=== PATIENT | female | born 1995 ===

== ENCOUNTER 2017-02-02 18:58 | Emergency (ER) | payer MEDICAID, OTHER ==
[2014-06-05 03:39] VITALS: BMI 30.8
--- NOTE | 2017-02-02 19:38 | OBHP ---
Datetime: 02/02/2017 19:13 IP Adm Impression: Term, intrauterine Admit Comment, IP Provider: 21 y/o @ 40.1 wks RAMÓN 02/01/17 c/o lower back pain and cramping since 2:30pm, constant, 07/23, dneies lof, vb, ctx, +FM Ante: Clinic reports uncomplicated OB: P1 2014 femalse no complcatins 7lbs 4 ounces term [employer]: denies hx of abnormal pap , ovaira cyst, fibroid, siti, LMP 04/27/16 PMH: dneis PSH: denies NKDA MEDS: PNV, Iron< Calcium SXH: Negative etoh/tobacc/drugs EFM: Cat I TOCO: irritalibty BPP: Cephalic, 8/8 MVP 4cm, anterior placenta A/P @ 40.1 wks GA not in active labor with maternal and reassuring and well being dc home f/u clinic 02/03/17 labor precations return to willi FHR - Baseline A Provider: 125 Membranes, Provider: Intact Comments, ACOG Physical Exam: no ab dominal tendnere, negativ rebound tendernes,s no rigidity VE: 2/50/-3 vtx intact Gestation - Est Wks by US: 40.1 EGA AdmitDate IP: 40.1 Vital Signs Provider: Reviewed IP Chief Complaint: Uterine contractions NICHD Variability Prov Fetus A: Moderate 6-25bpm Dilatation, Provider: 2 Effacement, Provider: 50 Station, Provider: -3
[2017-02-03 00:14] VITALS: BP 129/65; PULSE 79; TEMP 97.7
== END 2017-02-02 20:00 | disposition home or self-care (01) ==
LOC: C.EROB 18:58
DX: O26.893 Other specified pregnancy related conditions, third trimester (principal); Z3A.40 40 weeks gestation of pregnancy; M54.5 Low back pain

== ENCOUNTER 2017-02-04 15:50 | Inpatient (IN) | payer OTHER ==
[2014-06-05 03:39] VITALS: BMI 30.8
[2017-02-04 17:13] LABS: BASO % 0.1 % (0.0-2.0); EOS # 0.1 K/uL (0.0-0.7); EOS % 0.7 % (0.0-4.0); HEMATOCRIT 33.3 % (34.0-47.0); LYMPH # 1.9 K/uL (1.0-4.3); LYMPH % 18.7 % (20.0-40.0); MEAN CELL VOLUME 74.5 fL (81.0-99.0); MEAN CORPUSCULAR HEMOGLOBIN 25.1 pg (27.0-31.0); MEAN CORPUSCULAR HGB CONC 33.7 g/dL (33.0-37.0); MEAN PLATELET VOLUME 7.8 fL (7.2-11.7); MONO # 0.9 K/uL (0.0-0.8); RED CELL DISTRIBUTION WIDTH 16.9 % (11.5-14.5); WHITE BLOOD COUNT 10.4 K/uL (4.8-10.8)
[2017-02-04 17:25] LABS: ALKALINE PHOSPHATASE 92 U/L (38-126); ALT/SGPT 18 U/L (9-52); AST/SGOT 20 U/L (14-36); BILIRUBIN,TOTAL 0.4 mg/dL (0.2-1.3); BLOOD UREA NITROGEN 5 mg/dL (7-17); CALCIUM 8.2 mg/dl (8.6-10.4); CARBON DIOXIDE 21 mmol/L (22-30); CHLORIDE 103 mmol/L (98-107); GFR AFRICAN-AMERICAN > 60; GLUCOSE,RANDOM 110 mg/dL (65-105); SODIUM 131 mmol/L (132-148); TOTAL PROTEIN 6.8 g/dL (6.3-8.3)
[2017-02-04 17:32] LABS: RBC URINE 14 /hpf (0-3); URINE BACTERIA RARE (<OCC); URINE BILIRUBIN NEGATIVE (NEGATIVE); URINE BLOOD 2+ (NEGATIVE); URINE COLOR Yellow (YELLOW); URINE GLUCOSE (UA) NORMAL (Normal); URINE KETONE NEGATIVE (NEGATIVE); URINE LEUKOCYTE ESTERASE 1+ Leu/uL (Negative); URINE PROTEIN 1+ mg/dL (NEGATIVE); URINE UROBILINOGEN NORMAL mg/dL (0.2-1.0); WBC URINE 6 /hpf (0-5)
--- NOTE | 2017-02-04 20:09 | OBHP ---
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 , ovaira cyst, fibroid, siti, LMP 04/27/16 PMH: dneis PSH: denies NKDA MEDS: PNV, Iron< Calcium SXH: Negative etoh/tobacc/drugs EFM: Cat I TOCO: irritalibty A/P @ 40.3 wks GA in early labor -pt walking Pt reevlauted c/o ctx pain every 5 min increasing intenti adn frequency, denies vb, +FM admit to L+D npo, ivf dmission labs c0nt toco adn efm Pelvic Type - PN: Adequate Extremities - PN: Normal Abdomen - PN: Normal Back - PN: Normal Breast - PN: Not Done Lungs - PN: Normal Heart - PN: Normal Thyroid - PN: Not Done Neurologic - PN: Normal HEENT - PN: Normal General - PN: Normal Presentation-Admit: Vertex FHR - Baseline A Provider: 150 Membranes, Provider: Intact Gestation - Est Wks by US: 40.3 EGA AdmitDate IP: 40.3 Vital Signs Provider: Reviewed IP Chief Complaint: Uterine contractions NICHD Variability Prov Fetus A: Moderate 6-25bpm FHR Category Provider Fetus A: Category I Dilatation, Provider: 4 Effacement, Provider: 50 Station, Provider: -2 Genitourinary Exam: Normal DTRs - PN: Normal
[2017-02-04] MEDS ORDERED: Lactated Ringer's 1,000 ML IV SCH (20:15)
--- NOTE | 2017-02-04 20:15 | OBADHP ---
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[employer]: denies hx of abnormal pap , ovaira cyst, fibroid, siti, LMP 04/27/16 PMH: dneis PSH: denies NKDA MEDS: PNV, Iron< Calcium SXH: Negative etoh/tobacc/drugs EFM: Cat I TOCO: irritalibty A/P @ 40.3 wks GA in early labor -pt walking Pt reevlauted c/o ctx pain every 5 min increasing intenti adn frequency, denies vb, +FM admit to L+D npo, ivf dmission labs c0nt toco adn efm Pelvic Type - PN: Adequate Extremities - PN: Normal Abdomen - PN: Normal Back - PN: Normal Breast - PN: Not Done Lungs - PN: Normal Heart - PN: Normal Thyroid - PN: Not Done Neurologic - PN: Normal HEENT - PN: Normal General - PN: Normal Presentation-Admit: Vertex FHR - Baseline A Provider: 150 Membranes, Provider: Intact Gestation - Est Wks by US: 40.3 Vital Signs Provider: Reviewed IP Chief Complaint: Uterine contractions NICHD Variability Prov Fetus A: Moderate 6-25bpm FHR Category Provider Fetus A: Category I Dilatation, Provider: 4 Effacement, Provider: 50 Station, Provider: -2 Genitourinary Exam: Normal DTRs - PN: Normal EGA AdmitDate IP: 40.3 IP Adm Impression: Term, intrauterine IP Admit Plan: Admit to unit Datetime: 02/02/2017 19:13 Comments, ACOG Physical Exam: no ab dominal tendnere, negativ rebound tendernes,s no rigidity VE: /- vtx intact
[2017-02-05] MEDS ORDERED: Oxytocin 30 UNIT 30 UNITS/500 ML BAG IV SCH (06:15)
--- NOTE | 2017-02-05 06:28 | OBPN ---
Datetime: 02/05/2017 06:25 IP Progress Impression: Normal progression of labor IP Progress Plan: Continue present management Membranes, Provider: Intact Contraction Comments Provider: 7 min FHR - Baseline A Provider: 145 Gestation - Est Wks by US: 40.4 Presentation-Admit: Vertex IP Progress Note Comment: pt seen and examined c/o pain. pt dneis any vb, +Fm. pt does not desire an y pain meidcaion VS see above VE: 6/80/-2 vtx intact adequate pelviis EFW: 3500 A/P @ 40.4 wks GA augmentatin of labor pitocin per protocol cont currenet managment Vital Signs Provider: Reviewed; Within Normal Limits FHR Category Provider Fetus A: Category I NICHD Variability Prov Fetus A: Moderate 6-25bpm Dilatation, Provider: 6 Effacement, Provider: 80 Station, Provider: -2 NICHD Decel Fetus A IP Provider: None
--- NOTE | 2017-02-05 07:40 | OBPN ---
Datetime: 02/05/2017 07:39 IP Progress Impression: Normal progression of labor IP Procedures: Artificial ROM; Sterile Vag Exam FHR - Baseline A Provider: 130 IP Progress Note Comment: pt was examined at bed side ve 6/100/-1 arom clear anticipate Vital Signs Provider: Reviewed; Within Normal Limits NICHD Accel Fetus A IP Provider: [id number] FHR Category Provider Fetus A: Category I NICHD Variability Prov Fetus A: Moderate 6-25bpm Dilatation, Provider: 6 Effacement, Provider: 100 Station, Provider: -1 Datetime: 02/05/2017 06:25 Weight - Estimated: 3500
[2017-02-05] MEDS ORDERED: Oxycodone/Acetaminophen 5/325 mg Tab PO PRN ×2 (08:16)
[2017-02-05] MEDS ORDERED: Lidocaine 2% Inj (20ml) ONE (08:24)
--- NOTE | 2017-02-05 08:32 | OBDS ---
MATERNAL INFORMATION Provider Comments: baby deliverd in erin end clean no com LABOR SUMMARY EDC: 02/01/2017 00:00 No. Babies in Womb: 1 LABOR INFORMATION Group B Beta Strep: Negative (Annotations: 12/30/2016) MEMBRANES Membranes Rupture Method: Artificial Rupture of Membranes: 02/05/2017 07:27 Length of Rupture (hrs): 0.93 Amniotic Fluid Color: Clear Amniotic Fluid Amount: Scant Amniotic Fluid Odor: Normal STAGES OF LABOR Stage 3 hrs: 0 Stage 3 min: 4 VAGINAL DELIVERY Laceration Extension: N/A Laceration Type: None BABY A INFORMATION Infant Delivery Date/Time: 02/05/2017 08:23 Method of Delivery: Vaginal Born in Route : No : N/A Forceps: N/A Vacuum Extraction: N/A Shoulder Dystocia : No SHOULDER DYSTOCIA BABY A Infant Delivery Date/Time: 02/05/2017 08:23 PRESENTATION/POSITION BABY A Presentation: Cephalic Cephalic Presentation: Vertex Vertex Position: Left Occipital Anterior Breech Presentation: N/A PLACENTA INFORMATION BABY A Placenta Delivery Time : 02/05/2017 08:27 Placenta Method of Delivery: Spontaneous Placenta Status: Delivered SCORES BABY A Heart Rate 1 min: >100 bpm Resp Effort 1 min: Good Cry Reflex Irritability 1 min: Cough or Sneeze or Pulls Away Muscle Tone 1 min: Active Motion Color 1 min: Body [place], Extremities Blue SCORE 1 MIN: 9 Heart Rate 5 min: >100 bpm Resp Effort 5 min: Good Cry Reflex Irritability 5 min: Cough or Sneeze or Pulls Away Muscle Tone 5 min: Active Motion Color 5 min: Body [place], Extremities Blue SCORE 5 MIN: 9 INFANT INFORMATION BABY A Gestational Age at Delivery: 40.4 Gestational Status: Term Infant Outcome : Liveborn Condition : Stable Infant Sex: Female IDENTIFICATION/MEDS BABY A ID Band Number: [id number] WEIGHT/LENGTH BABY A Infant Birthweight (gms): 3470 Infant Weight (lb): 7 Infant Weight (oz): 10 Length Inches: 20.00 Length cms: 50.8 CORD INFORMATION BABY A No. Cord Vessels: 3 Nuchal Cord : N/A Nuchal Cord Other: 0
[2017-02-05] MEDS: Benzocaine/Menthol 20%-0.5% Topical Spray (60 ml) TOP PRN (17:56)
[2017-02-06 06:51] LABS: HEMATOCRIT 32.7 % (34.0-47.0); MEAN CELL VOLUME 74.5 fL (81.0-99.0); MEAN CORPUSCULAR HEMOGLOBIN 24.6 pg (27.0-31.0); MEAN PLATELET VOLUME 7.8 fL (7.2-11.7); RED CELL DISTRIBUTION WIDTH 17.1 % (11.5-14.5); WHITE BLOOD COUNT 15.4 K/uL (4.8-10.8)
--- NOTE | 2017-02-06 08:49 | OBPPN ---
Datetime: 02/06/2017 08:48 PP Pain Prov: Within normal limits PP Nausea Prov: Denies PP Flatus Prov: Yes PP BM Prov: No PP Heart Prov: Normal PP Lungs Prov: Normal PP Abdomen/Uterus Prov: Normal PP Vulva/Perineum Prov: Normal PP CVA Tenderness Prov: Normal PP Extremities Prov: Normal PP C/S Incision Prov: Not Applicable PP Progress Prov: Normal PP Impression Prov: Normal progression PP Plan Prov: Continue present management PP Progress Note Prov: S-patientr eports that her pain is well controlled.she denies nausea, [id number] g, headache, chest pain,shortenss of breath.passing flatus.ambulating and voiding wthout difficulty O- Abdoemn soft and nontender Fundus firm and below umbilicus extremiteis no calf tenderness A/P Patient s/p vaginal delivery ppd 1 doingw ell-follow up am cbc -monitro closely Vital Signs Provider PP: Reviewed; Within Normal Limits
[2017-02-06] MEDS: Benzocaine/Menthol 20%-0.5% Topical Spray (60 ml) TOP PRN (09:56)
[2017-02-06 16:29] VITALS: RESP 20
[2017-02-06] MEDS ORDERED: Influenza Vaccine 60 mcg/0.5 mL SYR (4YR UP) IM ONE (19:16)
[2017-02-07] MEDS ORDERED: Benzocaine/Menthol 20%-0.5% Topical Spray (60 ml) TOP PRN (09:09)
[2017-02-07] MEDS ORDERED: Influenza Vaccine 60 mcg/0.5 mL SYR (4YR UP) IM ONE (11:15)
[2017-02-07] MEDS: Benzocaine/Menthol 20%-0.5% Topical Spray (60 ml) TOP PRN (15:34)
[2017-02-07 23:29] VITALS: BP 124/73; PULSE 78; TEMP 98.8; O2SAT 98
--- NOTE | 2017-02-07 23:39 | OBPPN ---
Datetime: 02/07/2017 23:32 PP Pain Prov: Within normal limits PP Nausea Prov: Denies PP Flatus Prov: Yes PP BM Prov: Yes PP Breasts Prov: Normal PP Heart Prov: Normal PP Lungs Prov: Normal PP Abdomen/Uterus Prov: Normal PP Lochia Prov: Normal PP Vulva/Perineum Prov: Not Done PP CVA Tenderness Prov: Normal PP Extremities Prov: Normal PP C/S Incision Prov: Not Applicable PP Progress Prov: Normal PP Comments Phys Exam Prov: Abdomen: Obese. Soft. non distended. Fundus firm, mobile, non tender 2 F B below umbilicus. Mild lochia rubra. Extremities: 1+ pedal edema bilaterally All other systems reviewed and are negative. PP Impression Prov: Normal progression PP Plan Prov: Discharge PP Progress Note Prov: Patient was seen, evaluated and examined at approximately 1020 hours: pumping her breasts. "I want to see that I am making enough". Ambulating and voiding without d ifficulty. Denies nausea or vomiting. P.E.: as above. Mildly obese, in NAD. Awake, alert, oriented to time, person and place. Being at tended to by an older female. - PPD#2 H/H 10.8/32.7. Rh(+) Assessment: PPD#2, 21 y.o. P2, S/P . Afebrile, vital signs stable. Interested in IUD for contr aception. Clinically stable. Plan: 1) Discharge home 2) See full discharge instsructions. Vital Signs Provider PP: Reviewed; Within Normal Limits
--- NOTE | 2017-02-07 23:42 | OBDCSUM ---
Datetime: 02/07/2017 14:52 Discharged to, Provider: Home Follow up at, Provider: FELIZ Disch Instr Activity: Normal activity; May Shower Disch Instr Diet: Regular Discharge Diet restrict Prov: none Discharge Instructions, Provider: Routine instructions given Discharge Diagnosis, Provider: Term Delivered Discharge Time: 02/07/2017 14:55 Follow up in weeks, Provider: 03/20/17 Disch Referrals: None Contraception discussed, Prov: Yes Disch Activity Restrictions: No exercising; No lifting; No driving; Minimize walking; Minimize stair -climbing; No sexual activity; Nothing in vagina - [place], tampons, douche Discharge Diagnosis Prov Other: Contraception counseling Contraception after Delivery: IUD
== END 2017-02-07 19:00 | disposition home or self-care (01) | DRG 373 ==
LOC: C.EROB 15:50 → UNDOADMIN 16:33 → C.4D 16:33 → C.4M 02-05 10:40
PROVIDERS: ADMIT Obstetrics & Gynecology; ATTEND Obstetrics & Gynecology
PROC: 10E0XZZ Delivery of Products of Conception, External Approach (ICD-10-PCS; principal; 2017-02-05)
DX: O48.0 Post-term pregnancy (principal); Z37.0 Single live birth; Z3A.40 40 weeks gestation of pregnancy